=== PATIENT | female | born 1975 | race Asian ===

== ENCOUNTER → 2024-05-10 | Outpatient (CLI) | payer OTHER ==
[2024-05-11 07:06] LABS: MUMPS VIRUS IGG ANTIBODY 11.2 AU/mL (Immune >10.9); RUBELLA AB IGG-REFLAB 1.36 index (Immune >0.99); RUBEOLA (MEASLES) IGG 51.4 AU/mL (Immune >16.4); VARICELLA ZOSTER IGG AB TITER Reactive (Non Reactive)
== END | disposition home or self-care (01) ==
LOC: LABMN 14:19
PROVIDERS: ATTEND Internal Medicine
DX: Z02.1 Encounter for pre-employment examination (principal)
CPT/HCPCS: 86706; 86735; 86762; 86765; 86787